=== PATIENT | male | born 1990 | race Two or more races ===

== ENCOUNTER 2022-04-26 13:47 | Outpatient (REF) | payer OTHER, SELFPAY ==
[2022-04-26 15:39] LABS: Vitamin B12 350 pg/mL (200-900)
== END 2022-04-26 13:48 | disposition home or self-care (01) ==
LOC: HO.LAB 13:47
PROVIDERS: Visit Provider Psychiatry & Neurology Neurology
DX: G93.40 Encephalopathy, unspecified (principal)
CPT/HCPCS: 36415; 82607